=== PATIENT | female | born 1955 | race Caucasian/White ===

== ENCOUNTER 2020-01-07 13:36 | Outpatient (CLI) | payer BC ==
--- NOTE | 2020-01-07 14:47 | CT ---
CT ABDOMEN AND PELVIS WITH AND WITHOUT IV CONTRAST 01/07/2020 CLINICAL INFORMATION: Hematuria. COMPARISON: None. Technique: Multiple contiguous axial CT images are obtained through the abdomen and pelvis with IV contrast. Cor onal reformatted images are provided. FINDINGS: Lower Chest: Calcified left hilar lymph nodes are seen. Mild bibasilar atelectasis and/or scarring is present. Vessels: Minimal vascular calcifications are seen in the infrarenal abdominal aorta and involving the iliac arteries. Abdominal aorta is normal in caliber. Abdomen: Portal vein:Patent Gallbladder: Within normal limits for CT imaging. Liver: within normal limits. Spleen: Calcified granulomata present. Pancreas: within normal limits. Adrenals: within normal limits. Kidneys: No renal calculi are seen bilaterally. The most distal right ureter and right UVJ are not vi sualized due to significant adjacent streak artifact from right total hip prosthesis. There are otherwise no ureteral calculi seen bilaterally. An extrarenal pelvis is present on the right, but the re is no overt hydronephrosis. Right kidney is rotated. No enhancing renal mass is identified. Bowel: Evidence of colonic diverticulosis. Loops of small bowel are normal in caliber. Appendix: The appendix is visualized and normal in caliber. Peritoneum: No ascites or free air; no fluid collection. Mesentery and Retroperitoneum: No enlarged mesenteric or retroperitoneal lymph nodes. Abdominal Wall: Atrophy of the inferior aspect right rectus abdominis muscle as well as atrophy of ea ch gluteus minimus muscle bilaterally; this is a symmetric finding. There is also mild atrophy of the right abdominis oblique musculature. Pelvis: Reproductive Organs: Hysterectomy. Bladder: Partially distended and grossly normal in appearance. Bones: Degenerative changes in the spine. IMPRESSION: 1. No acute findings in the abdomen or pelvis. 2. Distal right ureter and right UVJ are not imaged due to artifact from right total hip prosthesis. There are otherwise no renal or ureteral calculi are seen bilaterally, and there is no hydronephrosis. 3. Colonic diverticulosis. 4. Hysterectomy. 5. Symmetric atrophy of each gluteus minimus muscle as well as atrophy of the inferior right rectus a bdominis muscle and right abdominal oblique musculature.
== END 2020-01-07 13:37 | disposition home or self-care (01) ==
LOC: BICCT 13:36
PROVIDERS: ATTEND Urology
DX: R31.29 Other microscopic hematuria (principal); K57.30 Diverticulosis of large intestine without perforation or abscess without bleeding; M62.58 Muscle wasting and atrophy, not elsewhere classified, other site; Z90.710 Acquired absence of both cervix and uterus
CPT/HCPCS: 74178; 82565

== ENCOUNTER 2022-11-27 06:10 | Observation (INO) | payer MEDICARE ==
[2022-11-22 15:31] VITALS: BMI 44.1
[~2022-11-27 06:10] MED LIST: Midazolam HCl 2 mg/2 ml Vial ONE; fentaNYL PF 100 MCG/2 ML SYRINGE ONE
[2022-11-27] MEDS ORDERED: VANCOMYCIN 2 GRAM/500 ML BAG 2 GM in Premix Bag 1 BAG IVPB SCH (06:15)
[2022-11-27] MEDS ORDERED: Bupivacaine PF 0.5% 30 ML VIAL ONE ×2 (06:23→06:42)
[2022-11-27] MEDS ORDERED: Ondansetron PF 4 MG/2 ML Vial ONE (06:24)
[2022-11-27] MEDS ORDERED: Bupivacaine HCl 0.5%/Epinephrine 1:200,000/PF 30 ml Vial ONE (06:24)
[2022-11-27] MEDS ORDERED: Lidocaine 1% PF 5 ML VIAL ONE (06:24)
[2022-11-27] MEDS ORDERED: Dexamethasone 20 MG/5 ML VIAL ONE (06:24)
[2022-11-27] MEDS ORDERED: Midazolam HCl 2 mg/2 ml Vial ONE (06:42)
[2022-11-27] MEDS ORDERED: fentaNYL 50 mcg/mL 1 mL Vial ONE (06:42)
[2022-11-27] MEDS ORDERED: Ondansetron PF 4 MG/2 ML Vial IVP PRN (06:52)
[2022-11-27] MEDS ORDERED: diphenhydrAMINE 25 MG CAP PO PRN (06:52)
[2022-11-27] MEDS ORDERED: traMADol HCl 50 MG TAB PO PRN (06:52)
[2022-11-27] MEDS ORDERED: Acetaminophen 325 MG TAB PO PRN (06:52)
[2022-11-27] MEDS ORDERED: HYDROcodone/Acetaminophen 10/325 mg Tablet PO PRN ×2 (06:52)
[2022-11-27] MEDS ORDERED: Zolpidem Tartrate 5 MG TAB PO PRN (06:52)
[2022-11-27] MEDS ORDERED: Promethazine HCl 25 MG/ML VIAL IM PRN (06:52)
[2022-11-27] MEDS ORDERED: fentaNYL 50 mcg/mL 1 mL Vial SLOW IVP PRN (06:52)
[2022-11-27] MEDS ORDERED: Sodium Chloride 0.9% 100 ML ONE ×2 (06:53→07:12)
[2022-11-27] MEDS ORDERED: CEFAZOLIN 2 GM VIAL ONE (06:53)
[2022-11-27] MEDS ORDERED: Tranexamic Acid 1,000 MG/10 ML VIAL ONE (07:12)
[2022-11-27] MEDS ORDERED: PROPOFOL 20 ML ONE (08:35)
[2022-11-27] MEDS ORDERED: Propofol 500 MG/50 ML VIAL ONE (08:36)
[2022-11-27] MEDS ORDERED: Non-Formulary Item 1 EACH (Multivit-Min/Iron/Folic/Lutein [Centrum Silver Women] 1 TABLET PO SCH (09:00)
[2022-11-27] MEDS ORDERED: PACU-Morphine 4MG/ML VIAL SLOW IVP PRN (09:16)
[2022-11-27] MEDS ORDERED: Ondansetron HCl/PF 4 MG/2 ML Vial IVP PRN (09:16)
[2022-11-27] MEDS ORDERED: Ketorolac Tromethamine 30 MG/ML VIAL IVP PRN (09:16)
[2022-11-27] MEDS: Sodium Chloride 0.9% 1,000 ML IV SCH ×2 (10:31→15:55)
[2022-11-27] MEDS: Aspirin 81 mg Enteric Coated Tablet PO SCH ×2 (10:31→20:27)
[2022-11-27] MEDS: Multivitamin W/ Minerals 1 TAB PO SCH (10:32)
[2022-11-27] MEDS: Senokot S 8.6-50 MG TAB PO SCH ×2 (10:32→20:28)
[2022-11-27] MEDS: Ferrous Gluconate 324 MG TAB PO SCH ×2 (10:32→20:28)
[2022-11-27] MEDS: traMADol HCl 50 MG TAB PO PRN (11:18)
[2022-11-27] MEDS ORDERED: FLU VACC QS2023(65UP)/MF59C/PF 60 MCG/0.5 ML SYRINGE IM ONE (12:00)
[2022-11-27] MEDS: CEFAZOLIN 2 GM in Sodium Chloride 0.9% 100 ML IVPB SCH ×2 (13:27→21:24)
[2022-11-27] MEDS: Ketorolac Tromethamine 30 MG/ML VIAL IVP SCH ×2 (13:28→21:24)
[2022-11-27] MEDS ORDERED: Gabapentin 100 MG CAP PO SCH (21:00)
[2022-11-27] MEDS ORDERED: Gabapentin 300 MG CAP PO SCH (21:00)
[2022-11-27] MEDS ORDERED: Pramipexole Di-HCl 1 MG TAB PO SCH (21:00)
[2022-11-27] MEDS ORDERED: Lisinopril 5 MG TAB PO SCH (21:00)
[2022-11-28] MEDS: Sodium Chloride 0.9% 1,000 ML IV SCH (04:53)
[2022-11-28] MEDS: Ketorolac Tromethamine 30 MG/ML VIAL IVP SCH (05:53)
[2022-11-28 05:57] LABS: Hemoglobin 11.7 g/dL (12.0-16.0); Mean Corpuscular HGB CONC 32.5 g/dL (32.0-36.0); Mean Corpuscular Hemoglobin 28.2 pg (27.0-31.0); Mean Corpuscular Volume 86.7 fl (78.0-98.0); Platelet Count 160 10x3/uL (130-400); RBC Distribution Width 17.1 % (11.5-14.5); Red Blood Cell (RBC) Count 4.15 mill/uL (4.20-5.40); White Blood Cell (WBC) Count 11.4 10x3/uL (4.8-10.8)
[2022-11-28] MEDS: Senokot S 8.6-50 MG TAB PO SCH (08:18)
[2022-11-28] MEDS: Multivitamin W/ Minerals 1 TAB PO SCH (08:18)
[2022-11-28] MEDS: traMADol HCl 50 MG TAB PO PRN (08:19)
[2022-11-28] MEDS: Aspirin 81 mg Enteric Coated Tablet PO SCH (08:19)
[2022-11-28] MEDS: Ferrous Gluconate 324 MG TAB PO SCH (08:19)
[2022-11-28 08:48] VITALS: BP 142/86; TEMP 98
== END 2022-11-28 10:45 | disposition home or self-care (01) ==
LOC: SDC 06:10 → SURG A 06:52
PROVIDERS: ADMIT Orthopaedic Surgery; ATTEND Orthopaedic Surgery
PROC: 0SRB0JZ Replacement of Left Hip Joint with Synthetic Substitute, Open Approach (ICD-10-PCS; principal; 2022-11-27)
DX: M16.12 Unilateral primary osteoarthritis, left hip (principal); D64.9 Anemia, unspecified; R60.0 Localized edema; I35.0 Nonrheumatic aortic (valve) stenosis; Z98.51 Tubal ligation status; Z90.710 Acquired absence of both cervix and uterus; Z79.899 Other long term (current) drug therapy
CPT/HCPCS: 27130; 73502; 85027; 97110 ×2; 97116 ×2; 97530; 97535; C1776; J3010; J3370; 36415; J1100; J1885; J2250; J2405; J2704; J3490; S0020

== ENCOUNTER 2024-09-22 11:29 | Outpatient (CLI) | payer OTHER | END 2024-09-22 11:30 | disposition home or self-care (01) | LOC: SCSRAD 11:29 | PROVIDERS: ATTEND Family Medicine | DX: M25.552 Pain in left hip (principal); G89.29 Other chronic pain; M25.852 Other specified joint disorders, left hip ==